=== PATIENT | female | born 1990 | race Caucasian/White ===

== ENCOUNTER 2018-06-13 00:48 | Emergency (ER) | payer MEDICAID ==
[~2018-06-13] VITALS: Ht 167.6 cm; Wt 58.0 kg
[~2018-06-13 00:48] MED LIST: ENOX40SY7 SUBCUT; FERR325T32 PO; KEP500T PO
[2018-06-13] MEDS ORDERED: AMOX500C2 PO (01:19)
[2018-06-13] MEDS ORDERED: amoxicillin 250mg capsule PO ONE (01:20)
[2018-06-13 01:32] VITALS: BP 113/73
== END 2018-06-13 01:35 | disposition home or self-care (01) ==
LOC: ER 00:48 → MERGE 00:48 → ER 01:35
DX: H66.91 Otitis media, unspecified, right ear (principal); H72.91 Unspecified perforation of tympanic membrane, right ear; Z88.0 Allergy status to penicillin; Z79.899 Other long term (current) drug therapy
CPT/HCPCS: 99283

== ENCOUNTER 2019-02-03 08:58 | Emergency (ER) | payer BC, MEDICAID ==
[~2019-02-03] VITALS: Ht 170.2 cm; Wt 60.0 kg
[2019-02-03] MEDS ORDERED: WARF10TA50 PO (10:27)
[2019-02-03 10:34] VITALS: BP 110/78
== END 2019-02-03 10:35 | disposition home or self-care (01) ==
LOC: ER 08:59
DX: D68.59 Other primary thrombophilia (principal); F10.99 Alcohol use, unspecified with unspecified alcohol-induced disorder; Z95.2 Presence of prosthetic heart valve; Z86.73 Personal history of transient ischemic attack (TIA), and cerebral infarction without residual deficits; Z86.69 Personal history of other diseases of the nervous system and sense organs; Z98.890 Other specified postprocedural states; Z56.0 Unemployment, unspecified; Z88.0 Allergy status to penicillin; Z79.899 Other long term (current) drug therapy; Z79.01 Long term (current) use of anticoagulants; Y90.9 Presence of alcohol in blood, level not specified
CPT/HCPCS: 36415; 85610; 99283

== ENCOUNTER 2023-03-14 10:47 | Emergency (ER) | payer OTHER ==
[~2023-03-14] VITALS: Ht 167.6 cm; Wt 64.0 kg
[~2023-03-14 10:47] MED LIST changes: +WARF10TA50 PO
[2023-03-14 11:47] VITALS: TEMP 98
[2023-03-14 12:21] LABS: BASOPHILS % (AUTO) 0.6 % (0-1); EOSINOPHILS # (AUTO) 0.2 X10'3 (0-0.9); EOSINOPHILS % (AUTO) 2.2 % (0-6); HEMATOCRIT 44.2 % (35.0-45.0); HEMOGLOBIN 15.1 g/dl (12.0-16.0); LYMPHOCYTES # (AUTO) 1.8 X10'3 (1.1-4.8); LYMPHOCYTES % (AUTO) 24.7 % (21-51); MEAN CORPUSCULAR HEMOGLOBIN 31.4 PG (27.0-31.0); MEAN CORPUSCULAR HGB CONC 34.3 g/dL (33.0-36.5); MEAN CORPUSCULAR VOLUME 91.4 FL (78-98); MEAN PLATELET VOLUME 8.9 FL (7.4-10.4); MONOCYTES # (AUTO) 0.4 X10'3 (0-0.9); MONOCYTES % (AUTO) 5.8 % (2-12); NEUTROPHILS # (AUTO) 4.8 X10'3 (1.8-7.7); NEUTROPHILS % (AUTO) 66.7 % (42-75); PLATELET COUNT 288 X10'3 (140-440); RED BLOOD COUNT 4.83 X10'6 (4.20-5.60); RED CELL DISTRIBUTION WIDTH 13.1 % (11.5-14.5); WHITE BLOOD COUNT 7.1 X10'3 (4.5-11.0)
[2023-03-14 12:45] LABS: ALANINE AMINOTRANSFERASE 30 U/L (12-78); ALBUMIN 4.6 G/DL (3.4-5.0); ALBUMIN/GLOBULIN RATIO 1.2 (1.1-1.5); ALKALINE PHOSPHATASE 92 IU/L (46-116); ANION GAP 9 (8-16); ASPARTATE AMINO TRANSFERASE 17 U/L (10-37); BILIRUBIN,TOTAL 0.5 MG/DL (0.1-1.0); BLOOD UREA NITROGEN 8 MG/DL (7-18); BUN/CREATININE RATIO 10.8 (10.0-20.0); CALCIUM 9.8 MG/DL (8.5-10.1); CHLORIDE 102 MMOL/L (99-107); CREATININE 0.74 MG/DL (0.40-0.90); GLUCOSE 104 MG/DL (70-104); POTASSIUM 3.7 MMOL/L (3.5-5.1); SODIUM 138 MMOL/L (135-145); TOTAL CARBON DIOXIDE 26.9 MMOL/L (24-32); TOTAL PROTEIN 8.5 G/DL (6.4-8.2); eCRCL 100 ML/MIN; eGFR 90 ML/MIN
[2023-03-14] MEDS ORDERED: normal saline 1000ML IV soln IVB ONE (14:20)
[2023-03-14 15:18] VITALS: BP 112/75; PULSE 80; RESP 16; O2SAT 100
[2023-03-14 15:46] LABS: PRO BRAIN NATRIURETIC PEPTIDE 68 PG/ML (0-125)
== END 2023-03-14 15:21 | disposition home or self-care (01) ==
LOC: ER 10:47
DX: R00.2 Palpitations (principal); Z95.2 Presence of prosthetic heart valve; Z88.0 Allergy status to penicillin; Z79.899 Other long term (current) drug therapy
CPT/HCPCS: 36415; 71045; 80053; 83880; 84484; 85025; 93005; 99285; J7030

== ENCOUNTER 2024-04-23 18:39 | Emergency (ER) | payer MEDICAID ==
[~2024-04-23] VITALS: Ht 167.6 cm; Wt 70.0 kg
[2024-04-23 19:02] LABS: BASOPHILS % (AUTO) 0.7 % (0-1); EOSINOPHILS # (AUTO) 0.1 X10'3 (0-0.9); EOSINOPHILS % (AUTO) 1.1 % (0-6); HEMATOCRIT 40.2 % (35.0-45.0); HEMOGLOBIN 14.1 g/dl (12.0-16.0); LYMPHOCYTES # (AUTO) 2.3 X10'3 (1.1-4.8); LYMPHOCYTES % (AUTO) 37.8 % (21-51); MEAN CORPUSCULAR HEMOGLOBIN 31.6 PG (27.0-31.0); MEAN CORPUSCULAR HGB CONC 35.1 g/dL (33.0-36.5); MONOCYTES # (AUTO) 0.4 X10'3 (0-0.9); MONOCYTES % (AUTO) 6.6 % (2-12); NEUTROPHILS # (AUTO) 3.3 X10'3 (1.8-7.7); NEUTROPHILS % (AUTO) 53.8 % (42-75); PLATELET COUNT 213 X10'3 (140-440); RED BLOOD COUNT 4.47 X10'6 (4.20-5.60); RED CELL DISTRIBUTION WIDTH 13.3 % (11.5-14.5); WHITE BLOOD COUNT 6.1 X10'3 (4.5-11.0)
[2024-04-23 19:11] LABS: ALANINE AMINOTRANSFERASE 56 U/L (12-78); ALBUMIN 4.2 G/DL (3.4-5.0); ALBUMIN/GLOBULIN RATIO 1.4 (1.1-1.5); ALKALINE PHOSPHATASE 104 IU/L (46-116); ANION GAP 7 (8-16); ASPARTATE AMINO TRANSFERASE 34 U/L (10-37); BILIRUBIN,TOTAL 0.7 MG/DL (0.1-1.0); BLOOD UREA NITROGEN 12 MG/DL (7-18); BUN/CREATININE RATIO 14.8 (10.0-20.0); CHLORIDE 101 MMOL/L (99-107); CREATININE 0.81 MG/DL (0.40-0.90); GLUCOSE 143 MG/DL (70-104); POTASSIUM 3.8 MMOL/L (3.5-5.1); SODIUM 136 MMOL/L (135-145); TOTAL CARBON DIOXIDE 27.9 MMOL/L (24-32); TOTAL PROTEIN 7.2 G/DL (6.4-8.2); eCRCL 91 ML/MIN; eGFR 80 ML/MIN
[2024-04-23 19:17] LABS: PRO BRAIN NATRIURETIC PEPTIDE 95 PG/ML (0-125)
[2024-04-23 21:59] VITALS: BP 107/77; PULSE 70; RESP 10; TEMP 98.1; O2SAT 99
== END 2024-04-23 22:03 | disposition home or self-care (01) ==
LOC: ER 18:40
DX: R07.89 Other chest pain (principal); Z88.0 Allergy status to penicillin; Z79.899 Other long term (current) drug therapy; Z86.73 Personal history of transient ischemic attack (TIA), and cerebral infarction without residual deficits
CPT/HCPCS: 36415; 71045; 80053; 83880; 84484; 85025; 93005; 99285

== ENCOUNTER 2024-06-25 09:15 | Emergency (ER) | payer MEDICAID ==
[~2024-06-25] VITALS: Ht 167.6 cm; Wt 68.8 kg
[2024-06-25 09:51] LABS: BASOPHILS % (AUTO) 0.3 % (0-1); EOSINOPHILS % (AUTO) 0 % (0-6); HEMATOCRIT 44.6 % (35.0-45.0); HEMOGLOBIN 15.4 g/dl (12.0-16.0); LYMPHOCYTES # (AUTO) 1.7 X10'3 (1.1-4.8); MEAN CORPUSCULAR HGB CONC 34.5 g/dL (33.0-36.5); MEAN PLATELET VOLUME 8.9 FL (7.4-10.4); MONOCYTES # (AUTO) 0.4 X10'3 (0-0.9); MONOCYTES % (AUTO) 6.7 % (2-12); NEUTROPHILS # (AUTO) 3.6 X10'3 (1.8-7.7); PLATELET COUNT 261 X10'3 (140-440); RED BLOOD COUNT 4.96 X10'6 (4.20-5.60); RED CELL DISTRIBUTION WIDTH 13.3 % (11.5-14.5); WHITE BLOOD COUNT 5.8 X10'3 (4.5-11.0)
[2024-06-25 10:18] LABS: ALANINE AMINOTRANSFERASE 46 U/L (12-78); ALBUMIN 4.8 G/DL (3.4-5.0); ALBUMIN/GLOBULIN RATIO 1.6 (1.1-1.5); ALKALINE PHOSPHATASE 98 IU/L (46-116); ANION GAP 5 (8-16); ASPARTATE AMINO TRANSFERASE 21 U/L (10-37); BILIRUBIN,TOTAL 0.4 MG/DL (0.1-1.0); BLOOD UREA NITROGEN 5 MG/DL (7-18); BUN/CREATININE RATIO 9.3 (10.0-20.0); CALCIUM 9.2 MG/DL (8.5-10.1); CHLORIDE 105 MMOL/L (99-107); CREATININE 0.54 MG/DL (0.40-0.90); GLUCOSE 93 MG/DL (70-104); POTASSIUM 3.8 MMOL/L (3.5-5.1); SODIUM 141 MMOL/L (135-145); TOTAL CARBON DIOXIDE 30.9 MMOL/L (24-32); TOTAL PROTEIN 7.8 G/DL (6.4-8.2); eCRCL 136 ML/MIN; eGFR > 90 ML/MIN
[2024-06-25 10:20] LABS: PRO BRAIN NATRIURETIC PEPTIDE 59 PG/ML (0-125)
[2024-06-25 11:08] LABS: INR 1.7 INR
[2024-06-25 11:11] LABS: D-DIMER < 0.19 MG/L FEU (0-0.50); PROTHROMBIN TIME 17.1 SECONDS (9.0-12.0)
[2024-06-25 11:40] VITALS: BP 114/81; PULSE 71; RESP 16; TEMP 99.2; O2SAT 100
== END 2024-06-25 11:39 | disposition home or self-care (01) ==
LOC: ER 09:16
DX: R00.2 Palpitations (principal); I21.9 Acute myocardial infarction, unspecified; Z88.0 Allergy status to penicillin; Z88.1 Allergy status to other antibiotic agents; Z86.73 Personal history of transient ischemic attack (TIA), and cerebral infarction without residual deficits; Z79.01 Long term (current) use of anticoagulants
CPT/HCPCS: 36415; 71045; 80053; 83880; 84484; 85025; 85379; 85610; 93005; 99285

== ENCOUNTER 2024-08-06 17:03 | Emergency (ER) | payer MEDICAID ==
[~2024-08-06] VITALS: Ht 167.6 cm; Wt 70.5 kg
[2024-08-06 17:09] VITALS: TEMP 98.1
[2024-08-06 17:27] LABS: BASOPHILS % (AUTO) 0.5 % (0-1); EOSINOPHILS % (AUTO) 0.3 % (0-6); HEMATOCRIT 45.2 % (35.0-45.0); HEMOGLOBIN 15.1 g/dl (12.0-16.0); LYMPHOCYTES # (AUTO) 2.2 X10'3 (1.1-4.8); LYMPHOCYTES % (AUTO) 28.9 % (21-51); MEAN CORPUSCULAR HEMOGLOBIN 29.8 PG (27.0-31.0); MEAN CORPUSCULAR HGB CONC 33.4 g/dL (33.0-36.5); MEAN CORPUSCULAR VOLUME 89.2 FL (78-98); MEAN PLATELET VOLUME 8.3 FL (7.4-10.4); MONOCYTES # (AUTO) 0.5 X10'3 (0-0.9); MONOCYTES % (AUTO) 7.2 % (2-12); NEUTROPHILS # (AUTO) 4.8 X10'3 (1.8-7.7); NEUTROPHILS % (AUTO) 63.1 % (42-75); PLATELET COUNT 343 X10'3 (140-440); RED BLOOD COUNT 5.06 X10'6 (4.20-5.60); RED CELL DISTRIBUTION WIDTH 13.3 % (11.5-14.5); WHITE BLOOD COUNT 7.6 X10'3 (4.5-11.0)
[2024-08-06 17:41] LABS: ALANINE AMINOTRANSFERASE 28 U/L (12-78); ALBUMIN 4.7 G/DL (3.4-5.0); ALBUMIN/GLOBULIN RATIO 1.6 (1.1-1.5); ALKALINE PHOSPHATASE 119 IU/L (46-116); ANION GAP 11 (8-16); ASPARTATE AMINO TRANSFERASE 19 U/L (10-37); BILIRUBIN,TOTAL 0.5 MG/DL (0.1-1.0); BLOOD UREA NITROGEN 6 MG/DL (7-18); CALCIUM 9.6 MG/DL (8.5-10.1); CHLORIDE 102 MMOL/L (99-107); GLUCOSE 102 MG/DL (70-104); POTASSIUM 3.2 MMOL/L (3.5-5.1); SODIUM 140 MMOL/L (135-145); TOTAL CARBON DIOXIDE 27.4 MMOL/L (24-32); TOTAL PROTEIN 7.6 G/DL (6.4-8.2)
[2024-08-06 17:49] LABS: PRO BRAIN NATRIURETIC PEPTIDE 89 PG/ML (0-125)
[2024-08-06 17:51] LABS: BUN/CREATININE RATIO 8.3 (10.0-20.0); CREATININE 0.72 MG/DL (0.40-0.90); eCRCL 102 ML/MIN; eGFR > 90 ML/MIN
[2024-08-06 20:47] VITALS: BP 112/68; PULSE 74; RESP 15; O2SAT 99
== END 2024-08-06 20:49 | disposition home or self-care (01) ==
LOC: ER 17:04
DX: R00.2 Palpitations (principal); K62.5 Hemorrhage of anus and rectum; F41.9 Anxiety disorder, unspecified; Z86.73 Personal history of transient ischemic attack (TIA), and cerebral infarction without residual deficits; Z88.0 Allergy status to penicillin; Z88.1 Allergy status to other antibiotic agents; Z79.899 Other long term (current) drug therapy; Z56.0 Unemployment, unspecified; Z72.89 Other problems related to lifestyle
CPT/HCPCS: 36415; 71045; 80053; 83880; 84484; 85025; 93005; 99285

== ENCOUNTER 2024-08-27 14:01 | Emergency (ER) | payer MEDICAID ==
[~2024-08-27] VITALS: Ht 168.9 cm; Wt 69.1 kg
[2024-08-27 14:05] VITALS: TEMP 97.9
[2024-08-27 14:40] LABS: BASOPHILS % (AUTO) 0.5 % (0-1); EOSINOPHILS % (AUTO) 0.2 % (0-6); HEMATOCRIT 40.9 % (35.0-45.0); HEMOGLOBIN 14.2 g/dl (12.0-16.0); LYMPHOCYTES % (AUTO) 32.2 % (21-51); MEAN CORPUSCULAR HEMOGLOBIN 30.6 PG (27.0-31.0); MEAN CORPUSCULAR HGB CONC 34.7 g/dL (33.0-36.5); MEAN PLATELET VOLUME 8.9 FL (7.4-10.4); MONOCYTES # (AUTO) 0.4 X10'3 (0-0.9); NEUTROPHILS # (AUTO) 3.7 X10'3 (1.8-7.7); NEUTROPHILS % (AUTO) 60.1 % (42-75); PLATELET COUNT 234 X10'3 (140-440); RED BLOOD COUNT 4.64 X10'6 (4.20-5.60); RED CELL DISTRIBUTION WIDTH 13.8 % (11.5-14.5); WHITE BLOOD COUNT 6.1 X10'3 (4.5-11.0)
[2024-08-27 14:55] LABS: ALANINE AMINOTRANSFERASE 33 U/L (12-78); ALBUMIN 4.6 G/DL (3.4-5.0); ALBUMIN/GLOBULIN RATIO 1.7 (1.1-1.5); ALKALINE PHOSPHATASE 100 IU/L (46-116); ANION GAP 6 (8-16); ASPARTATE AMINO TRANSFERASE 22 U/L (10-37); BILIRUBIN,TOTAL 0.5 MG/DL (0.1-1.0); BLOOD UREA NITROGEN 9 MG/DL (7-18); BUN/CREATININE RATIO 13.2 (10.0-20.0); CHLORIDE 104 MMOL/L (99-107); CREATININE 0.68 MG/DL (0.40-0.90); GLUCOSE 89 MG/DL (70-104); POTASSIUM 3.9 MMOL/L (3.5-5.1); SODIUM 140 MMOL/L (135-145); TOTAL CARBON DIOXIDE 30.3 MMOL/L (24-32); TOTAL PROTEIN 7.3 G/DL (6.4-8.2); eCRCL 110 ML/MIN; eGFR > 90 ML/MIN
[2024-08-27 15:04] LABS: PRO BRAIN NATRIURETIC PEPTIDE 151 PG/ML (0-125)
[2024-08-27 15:55] VITALS: BP 120/78; PULSE 74; RESP 14; O2SAT 99
== END 2024-08-27 15:56 | disposition home or self-care (01) ==
LOC: ER 14:02
DX: R00.2 Palpitations (principal); F41.9 Anxiety disorder, unspecified; Z86.73 Personal history of transient ischemic attack (TIA), and cerebral infarction without residual deficits; Z88.0 Allergy status to penicillin; Z88.1 Allergy status to other antibiotic agents; Z79.899 Other long term (current) drug therapy; Z72.89 Other problems related to lifestyle; Z56.0 Unemployment, unspecified
CPT/HCPCS: 36415; 71045; 80053; 83880; 84484; 85025; 93005; 99285

== ENCOUNTER 2024-12-30 15:41 | Emergency (ER) | payer MEDICAID ==
[~2024-12-30] VITALS: Ht 170.2 cm; Wt 65.6 kg
[2024-12-30 15:51] VITALS: TEMP 97.6
--- NOTE | 2024-12-30 15:59 | ELECTROCARDIOGRAPH REPORT ---
[facility] Test Date: 2024-12-30 Test Time: 15:47:36 Pat Name: MARCOS ALATORRE Department: EMERGENCY ROOM Room: Gender: F Candy Catcher: : 1990 Requested By: JAMES ALAN Order Number: [id number] Reading MD: Measurements Intervals [place] Rate: 63 P: 52 DC: 144 QRS: 58 QRSD: 77 T: 66 QT: 438 QTc: 449 Interpretive Statements Sinus rhythm Please click the below link to view image of tracing.
[2024-12-30 16:23] LABS: MEAN PLATELET VOLUME 8.9 FL (7.4-10.4); RED CELL DISTRIBUTION WIDTH 14.0 % (11.5-14.5)
--- NOTE | 2024-12-30 16:33 | RADIOLOGY REPORT ---
CHEST RADIOGRAPH Indication: CP Technique: DI CHEST,SINGLE VIEW Comparison: None FINDINGS: 1 The cardiac silhouette is unremarkable. The lungs demonstrate no pulmonary airspace consolidation. Th e pulmonary vasculature is unremarkable. There is no pleural effusion. There is no pneumothorax. IMPRESSION: No pulmonary airspace consolidation.
[2024-12-30 16:35] LABS: CREATININE 0.89 MG/DL (0.40-0.90); PRO BRAIN NATRIURETIC PEPTIDE 90 PG/ML (0-125); TOTAL CARBON DIOXIDE 27.6 MMOL/L (24-32); eCRCL 86 ML/MIN; eGFR 72 ML/MIN
[2024-12-30 17:11] VITALS: PULSE 65
--- NOTE | 2024-12-30 18:10 | Physician Documentation ---
History of Present Illness ~ Chief Complaint: Palpitations Stated Complaint: HEART PALPITATIONS Time Seen by MD: 17:18 Primary Medical Doctor: [facility] Mode of Arrival: Ambulatory HPI 34-year-old female, with a mechanical aortic valve, presenting with palpitations She tells me that she has had intermittent palpitations occasionally. She even had a heart monitor recently although she does not know the results. Today she was having worsening palpitations. She states it feels like her heart is skipping a beat. She started to feel tightness in her chest. No fevers or infectious symptoms. No vomiting or diarrhea. No syncope. No heavy caffeine use or stimulant use. Medication Reconciliation Allergies: Coded Allergies: Penicillins (Verified Allergy, Unknown, 12/30/24) >5 years ago, unknown reaction, unknown treatment amoxicillin (Verified Allergy, Unknown, 12/30/24) penicillin G (Verified Allergy, Unknown, 12/30/24) Scheduled Enoxaparin Sodium (Lovenox), 50 MG SUBCUT BID, (Reported) Ferrous Sulfate (Ferrous Sulfate), 1 TAB PO DAILY, (Reported) Levetiracetam (Keppra), 1 TAB PO BID, (Reported) Warfarin Sodium (COUMADIN tablet), 1 TAB PO DAILY Past Medical History Past Medical History: CVA/TIA/Stroke, Seizures, *CARDIOVASCULAR* Past Surgical History: other Other Past Surgical History: aortic stenosis Patient History: (CVA) Cerebrovascular accident FATHER MOTHER ([place]) Myocardial infarction FATHER FH: dementia MOTHER GRANDFATHER OR GRANDMOTHER, Name: maternal gma Smoking Status: Never smoker Alcohol Use: Occasionally Drug Use: none Lives with: Mother Lives In: Home Occupation: unemployed Review of Systems Constitutional: Denies: fever Cardiovascular: Reports: palpitations Physical Exam Vital Signs: Temperature: 97.6, Source: Oral, Heart Rate: 65, Respiratory Rate: 15, BP: 101/71, Pulse Oximetry: 96, Weight: 65.600 Oxygen Flow Rate: 0 Physical Exam General: This is a pleasant and overall well-appearing young female, partner at bedside HEENT: Atraumatic, oropharynx is moist Heart: Regular rate and rhythm, loud systolic murmur, normal-appearing peripheral perfusion Lungs: Clear breath sounds bilateral, normal work of breathing, normal oxygen saturation on room air Abdomen: Soft, nondistended, nontender all quadrants Neuro: Alert and oriented Psychiatric: Calm and cooperative with exam Progress Results/Orders Results/Orders Orders - JAMES ALAN MD Chest,Single View (12/30/24 15:57) Monitor (12/30/24 15:57) Saline Lock (12/30/24 15:57) Oxygen (12/30/24 15:57) Completed Orders - JAMES ALAN MD Chest,Single View (12/30/24 15:57) Cbc/Diff (12/30/24 15:57) BMP (12/30/24 15:57) PBNP (12/30/24 15:57) Electrocardiogram (12/30/24 15:57) Hs Troponin I W Calculations (12/30/24 15:57) Vital Signs 12/30/24 12/30/24 12/30/24 15:51 17:11 18:22 Temp 97.6 Pulse 68 65 Resp 18 15 16 B/P (MAP) 106/64 101/71 (81) 100/68 Pulse Ox 99 96 98 O2 Flow Rate 0 0 Laboratory Tests Test 12/30/24 15:47 White Blood Count 6.8 Red Blood Count 4.67 Hemoglobin 14.4 Hematocrit 40.3 Mean Corpuscular Volume 86.2 Mean Corpuscular Hemoglobin 30.8 Mean Corpuscular Hemoglobin Concent 35.7 Red Cell Distribution Width 14.0 Platelet Count 260 Mean Platelet Volume 8.9 Neutrophils (%) (Auto) 60.5 Lymphocytes (%) (Auto) 31.9 Monocytes (%) (Auto) 5.8 Eosinophils (%) (Auto) 1.3 Basophils (%) (Auto) 0.5 Neutrophils # (Auto) 4.1 Lymphocytes # (Auto) 2.2 Monocytes # (Auto) 0.4 Eosinophils # (Auto) 0.1 Basophils # (Auto) 0.0 CBC Comment Sodium Level 140 Potassium Level 3.8 Chloride Level 104 Carbon Dioxide Level 27.6 Anion Gap 8 Blood Urea Nitrogen 8 Creatinine 0.89 Estimated GFR/1.73 m2 72 BUN/Creatinine Ratio 9.0 L Glucose Level 94 Calcium Level 9.3 Troponin I High Sensitivity 4 Pro-B-Type Natriuretic Peptide 90 Albumin 4.4 Chemistry Comments EKG/XRAY/CT/US/VASC/MRI EKG : Additional Comment I personally interpreted the EKG and this shows: Sinus rhythm, rate 63, QTC 449, no ischemic changes Chest X-Ray : Additional Comments I personally interpreted the x-ray, and it shows: No focal consolidation, pulmonary edema, or pneumothorax Medical Decision Making Differential Dx:Considerations: Include: atrial dysrhythmia, atrial fibrillation, atrial flutter, MAT, PACs, PSVT, PVCs Additional Information The patient presents with palpitations. Here in the ED she is noted to have PVCs which correspond to her palpitations. Her workup shows no electrolyte derangement or other acute abnormality. I had a long discussion with the patient and her regarding these PVCs and treatment plan. She already has propranolol, and so she will be discharged with propranolol as needed for palpitations, and plan to follow up with the foil operator. Departure Time of Disposition: 18:10 Disposition: 01 HOME / SELF CARE / HOMELESS Impression: Primary Impression: Ventricular premature beats Condition: Stable Discharge Instructions: Premature Ventricular Contraction Referrals: NO PRIMARY CARE PROVIDER (PCP) Education Educated: Patient, Family Educated regarding: diagnosis, treatment, need for follow up Signature Scribe Signature: na Attestation: JAMES Cadena MD Dec 30, 2024 18:10
[2024-12-30 18:22] VITALS: BP 100/68; RESP 16; O2SAT 98
== END 2024-12-30 18:24 | disposition home or self-care (01) ==
LOC: ER 15:41
DX: I49.3 Ventricular premature depolarization (principal); Z86.73 Personal history of transient ischemic attack (TIA), and cerebral infarction without residual deficits; Z88.0 Allergy status to penicillin; Z88.1 Allergy status to other antibiotic agents; Z79.899 Other long term (current) drug therapy; Z56.0 Unemployment, unspecified; Z72.89 Other problems related to lifestyle
CPT/HCPCS: 36415; 71045; 80048; 83880; 84484; 85025; 93005; 99285